=== PATIENT | female | born 1945 | race Caucasian/White ===

== ENCOUNTER → 2016-10-22 14:38 | Outpatient (CLI) | payer MEDICARE | END | disposition home or self-care (01) | LOC: D.CT 10-14 11:00 | DX: R26.0 Ataxic gait (principal) ==

== ENCOUNTER → 2017-05-06 14:15 | Outpatient (CLI) | payer MEDICARE | END | disposition home or self-care (01) | LOC: D.MAMMO 02-18 13:30 | DX: Z12.31 Encounter for screening mammogram for malignant neoplasm of breast (principal) ==

== ENCOUNTER 2017-10-03 08:00 | Outpatient (CLI) | payer MEDICARE | END 2017-10-03 09:00 | disposition home or self-care (01) | LOC: D.MAMMO 08:00 | DX: R92.8 Other abnormal and inconclusive findings on diagnostic imaging of breast (principal) ==

== ENCOUNTER 2018-12-10 04:20 | Emergency (ER) | payer MEDICARE ==
[~2018-12-10] VITALS: Ht 162.6 cm; Wt 81.6 kg
[2018-12-10 04:23] VITALS: Ht 162.6 cm; Wt 81.6 kg
[2018-12-10] MEDS ORDERED: LIPITOR20 MG (04:24)
[2018-12-10 04:48] LABS: BASOPHILS 0.2 % (0-2); EOSINOPHILS 1.7 % (0-7); HEMOGLOBIN 14.4 g/dL (12-16); IMMATURE GRANULOCYTES 0.2 % (0-5); LYMPHOCYTES 13.3 % (15-50); MCH 30.2 pg (26.0-34.0); MCHC 34.3 g/dL (31.0-37.0); MCV 88.1 fL (80.0-100.0); MEAN PLATELET VOLUME 9.8 fL (7.4-10.4); MONOCYTES 11.1 % (2-11); NEUTROPHILS 73.5 % (40-80); PLATELET COUNT 244 10x3/uL (130-400); RBC 4.77 10x6/uL (4.00-5.40); RDW 13.7 % (11.5-14.5); WBC 15.1 10x3/uL (4.8-10.8)
[2018-12-10 05:11] LABS: ALBUMIN 3.9 g/dL (3.4-5.0); ALKALINE PHOSPHATASE 78 U/L (46-116); ALT (SGPT) 29 U/L (10-68); BILIRUBIN - TOTAL 0.53 mg/dL (0.2-1.3); CALC OSMOLALITY 278 mosm/kg (275-300); CALCIUM 9.4 mg/dL (8.5-10.1); CARBON DIOXIDE 25.7 mmol/L (21.0-32.0); CHLORIDE - SERUM 101 mmol/L (98-107); GLUCOSE 136 mg/dL (74-106); POTASSIUM - SERUM 3.4 mmol/L (3.5-5.1); PROTEIN - SERUM 7.7 g/dL (6.4-8.2); SODIUM 139 mmol/L (136-145); UREA NITROGEN 11 mg/dL (7-18); eGFR NON AFRICAN AMERICAN 58 mL/min (90-120)
[2018-12-10 05:14] LABS: AMYLASE - SERUM 44 U/L (25-115); LIPASE 100 U/L (73-393); TROPONIN-I < 0.017 ng/mL (0.000-0.060)
[2018-12-10 05:38] LABS: APPEARANCE HAZY (CLEAR); BILIRUBIN NEGATIVE (NEGATIVE); COLOR YELLOW (YELLOW); GLUCOSE 500 mg/dL (NEGATIVE); KETONE SMALL mg/dL (NEGATIVE); NITRITE POSITIVE (NEGATIVE); PROTEIN NEGATIVE (NEGATIVE); SPECIFIC GRAVITY 1.015 (1.005-1.020); UROBILINOGEN NORMAL (NORMAL); WHITE CELLS - URINE 0-5 /hpf (0-5)
[2018-12-10 05:39] LABS: BACTERIA MANY /hpf (NONE SEEN); EPITHELIAL CELLS NSEEN /hpf (0-5); RED CELLS - URINE NONE SEEN /hpf (0-5)
[2018-12-10] MEDS ORDERED: ZOFRAN ODT4 MG/UDTAB PO (05:50)
[2018-12-10 06:30] VITALS: BP 127/67
== END 2018-12-10 06:30 | disposition home or self-care (01) ==
LOC: D.ER 04:20
PROVIDERS: Family Medicine
DX: K52.9 Noninfective gastroenteritis and colitis, unspecified (principal)

== ENCOUNTER 2019-03-01 09:00 | Outpatient (CLI) | payer MEDICARE ==
[~2019-03-01 09:00] MED LIST: LIPITOR20 MG; ZOFRAN ODT4 MG/UDTAB PO
== END 2019-03-01 10:00 | disposition home or self-care (01) ==
LOC: D.MAMMO 09:00
PROVIDERS: ATTEND Family Medicine
DX: R92.8 Other abnormal and inconclusive findings on diagnostic imaging of breast (principal)

== ENCOUNTER → 2019-03-21 07:34 | Outpatient (CLI) | payer MEDICARE | END | disposition home or self-care (01) | LOC: D.CT 07:34 | PROVIDERS: ATTEND Family Medicine | DX: R10.9 Unspecified abdominal pain (principal) ==